=== PATIENT | female | born 1995 | race Caucasian/White ===

== ENCOUNTER 2017-08-19 08:41 | Emergency (ER) | payer MEDICAID, OTHER ==
[~2017-08-19] VITALS: Ht 165.1 cm; Wt 54.7 kg
[~2017-08-19 08:41] MED LIST: ASPI-611 PO; CEPH500C5 PO; MECL12.584 PO; ONDA4TAB12 PO; SILD20TA2 PO
[2017-08-19 08:45] VITALS: BP 111/70
[2017-08-19] MEDS ORDERED: PENI500T2 PO (09:00)
== END 2017-08-19 09:16 | disposition home or self-care (01) ==
LOC: ER 08:43
DX: J02.0 Streptococcal pharyngitis (principal); Z98.890 Other specified postprocedural states; Z88.1 Allergy status to other antibiotic agents; Z88.8 Allergy status to other drugs, medicaments and biological substances; Z79.82 Long term (current) use of aspirin
CPT/HCPCS: 99283

== ENCOUNTER 2017-09-14 23:05 | Emergency (ER) | payer MEDICAID, OTHER ==
[~2017-09-14] VITALS: Ht 180011.9 cm; Wt 54.0 kg
[~2017-09-14 23:05] MED LIST changes: +PENI500T2 PO
[2017-09-14] MEDS ORDERED: NAPR375T5 PO (23:41)
[2017-09-14 23:46] VITALS: BP 119/74
== END 2017-09-14 23:51 | disposition home or self-care (01) ==
LOC: ER 23:05
DX: G56.01 Carpal tunnel syndrome, right upper limb (principal); J06.9 Acute upper respiratory infection, unspecified; Z88.2 Allergy status to sulfonamides; Z88.1 Allergy status to other antibiotic agents
CPT/HCPCS: 29125; 99283

== ENCOUNTER 2020-04-21 09:04 | Inpatient (IN) | payer BC, MEDICAID ==
[~2020-04-21] VITALS: Ht 165.1 cm; Wt 61.8 kg
[~2020-04-21 09:04] MED LIST changes: -CEPH500C5 PO; -MECL12.584 PO; -ONDA4TAB12 PO; -PENI500T2 PO; +PHEN-824 PO
[2020-04-21 09:58] LABS: CLARITY,URINE CLOUDY (Clear); COLOR,URINE STRAW (Yellow); GLUCOSE, URINE NEGATIVE (Neg); KETONES,URINE NEGATIVE (Neg); LEUKOCYTE ESTERASE ,URINE MODERATE (Neg); NITRITES, URINE POSITIVE (Neg); OCCULT BLOOD,URINE LARGE (Neg); PROTEIN,URINE 30 mg/dl (Neg); UROBILINOGEN,URINE 0.2 E.U/dL (0.2-1.0)
[2020-04-21 10:00] LABS: UA COLLECTION TYPE CLN CATCH MIDSTREAM; URINE HCG NEGATIVE (NEG)
[2020-04-21 10:04] LABS: SQUAMOUS EPITHELIAL CELL,UR FEW /LPF (FEW); WBC,URINE TNTC /HPF (0-4)
[2020-04-21 10:06] LABS: BACTERIA,URINE 1+ /HPF (Neg); WBC CLUMPS,URINE MANY /HPF (NEGATIVE)
[2020-04-21] MEDS ORDERED: normal saline 1000ML IV soln IVB STA (10:34)
[2020-04-21 11:01] LABS: BASOPHILS % (AUTO) 0.2 % (0-1); EOSINOPHILS % (AUTO) 0.3 % (0-6); HEMATOCRIT 43.7 % (35.0-45.0); HEMOGLOBIN 14.6 g/dl (12.0-16.0); LYMPHOCYTES # (AUTO) 0.9 X10'3 (1.1-4.8); LYMPHOCYTES % (AUTO) 6.3 % (21-51); MEAN CORPUSCULAR HEMOGLOBIN 29.8 PG (27.0-31.0); MEAN CORPUSCULAR HGB CONC 33.4 g/dL (33.0-36.5); MEAN CORPUSCULAR VOLUME 89.3 FL (78-98); MEAN PLATELET VOLUME 7.7 FL (7.4-10.4); MONOCYTES # (AUTO) 0.9 X10'3 (0-0.9); MONOCYTES % (AUTO) 6.5 % (2-12); NEUTROPHILS # (AUTO) 12.7 X10'3 (1.8-7.7); NEUTROPHILS % (AUTO) 86.7 % (42-75); PLATELET COUNT 341 X10'3 (140-440); RED CELL DISTRIBUTION WIDTH 12.7 % (11.5-14.5); WHITE BLOOD COUNT 14.6 X10'3 (4.5-11.0)
[2020-04-21] MEDS ORDERED: ondansetron/PF 4mg/2ml inj IV ONE (11:05)
--- NOTE | 2020-04-21 11:08 | NUR ---
ISAI GRANDMOTHER CALLED. PT WAS SEEN IN [facility] ON [address] FOR UTI A WEEK AND 1/2 AGO. PRESCRIBED ANTIBOTIC BUT DIDNT KNOW WHAT KIND. PT HAS APPT NEXT MONTH WITH UROLOGY AT [facility]. PLEASE CALL ISAI AT [phone] FOR ANY QUESTIONS OR INFO.
[2020-04-21 11:26] LABS: ALANINE AMINOTRANSFERASE 23 U/L (12-78); ALKALINE PHOSPHATASE 55 IU/L (46-116); ANION GAP 9 (8-16); ASPARTATE AMINO TRANSFERASE 14 U/L (10-37); BILIRUBIN,TOTAL 0.8 MG/DL (0.1-1.0); BLOOD UREA NITROGEN 13 MG/DL (7-18); BUN/CREATININE RATIO 12.4 (6.6-38.0); CALCIUM 9.1 MG/DL (8.5-10.1); CHLORIDE 103 MMOL/L (99-107); CREATININE 1.05 MG/DL (0.40-0.90); GLUCOSE 93 MG/DL (70-104); POTASSIUM 3.7 MMOL/L (3.5-5.1); SODIUM 139 MMOL/L (135-145); TOTAL CARBON DIOXIDE 26.9 MMOL/L (24-32); eGFR 66 ML/MIN
[2020-04-21] MEDS ORDERED: CefTRIAXone 2gm/D5W 50ml 50 ML IV ONE (11:45)
--- NOTE | 2020-04-21 12:17 | NUR ---
ANTIBIOTIC RUNNING AT THIS TIME.WE WILL MONITOR.
--- NOTE | 2020-04-21 14:06 | NUR ---
Pt's family member phoned and requested to speak with the patient's physician. QUINN Mitchell is speaking with them at this time. Pt was asking about being given medication to take at home and Provider explained to the patient the need for admission to the hospital and management of her care.
[2020-04-21] MEDS ORDERED: iohexol 300mg/ml 100ml inj. ONE (14:53)
[2020-04-21] MEDS ORDERED: diphenhydrAMINE 25mg capsule PO PRN (16:25)
[2020-04-21] MEDS ORDERED: magnesium hydroxide 30ml (MOM) UD suspension PO PRN (16:25)
[2020-04-21] MEDS ORDERED: mag hydrox/Alum hydrox/simeth 30ml oral suspension PO PRN (16:25)
[2020-04-21] MEDS ORDERED: potassium Cl 20 mEq SR tablet PO PRN ×2 (16:25)
[2020-04-21] MEDS ORDERED: morphine 2 MG/ML inj. syringe IV PRN ×2 (16:25)
[2020-04-21] MEDS ORDERED: magnesium Cl slow-release 64mg tablet PO PRN (16:25)
[2020-04-21] MEDS ORDERED: HYDROcodone/acetaminophen 5mg/325mg tablet PO PRN (16:25)
[2020-04-21] MEDS ORDERED: potassium CL 10mEq/100ml bag 100 ML IV PRN ×2 (16:25)
[2020-04-21] MEDS ORDERED: magnesium 2GM in 50ml NS 50 ML IV PRN (16:25)
[2020-04-21] MEDS ORDERED: acetaminophen 325mg tablet PO PRN (16:25)
[2020-04-21] MEDS ORDERED: magnesium 4gm in 100ml NS 100 ML IV PRN (16:25)
[2020-04-21] MEDS: normal saline 1000ml 1,000 ML IV SCH (17:02)
[2020-04-21 17:06] LABS: HEMOGLOBIN A1C 5.4 % (4.5-6.2)
[2020-04-21] MEDS: HYDROcodone/acetaminophen 10/325mg tab PO PRN (18:10)
[2020-04-21 19:15] VITALS: BP 113/63
--- NOTE | 2020-04-21 19:15 | NUR ---
PATIENT ADMITTED TO ROOM 350B FROM ER FOR UTI AND OBSTRUCTION. PLACED COMFORTABLE IN BED. VITAL SIGNS TAKEN AND RECORDED.
[2020-04-21] MEDS: K and/or MAG REPLACEMENT MC SCH (20:00)
[2020-04-21] MEDS: ondansetron/PF 4mg/2ml inj IV PRN (21:33)
[2020-04-21] MEDS: heparin, porcine 5000 units/ml vial SQ SCH (21:37)
[2020-04-21] MEDS: sildenafil citrate 20mg tablet PO SCH (22:28)
[2020-04-21] MEDS: aspirin 81mg tablet.DR PO SCH (22:29)
[2020-04-22] VITALS: BP 100/50
[2020-04-22] MEDS: HYDROcodone/acetaminophen 10/325mg tab PO PRN (02:15)
[2020-04-22] MEDS: normal saline 1000ml 1,000 ML IV SCH ×3 (02:16→20:42)
[2020-04-22 05:16] LABS: ALANINE AMINOTRANSFERASE 14 U/L (12-78); ALBUMIN/GLOBULIN RATIO 0.9 (1.1-1.5); ALKALINE PHOSPHATASE 44 IU/L (46-116); ANION GAP 9 (8-16); ASPARTATE AMINO TRANSFERASE 9 U/L (10-37); BILIRUBIN,TOTAL 0.5 MG/DL (0.1-1.0); BLOOD UREA NITROGEN 9 MG/DL (7-18); BUN/CREATININE RATIO 10.6 (6.6-38.0); CALCIUM 8.3 MG/DL (8.5-10.1); CHLORIDE 106 MMOL/L (99-107); CHOL/HDL RATIO 3.1 (0.00-4.99); CHOLESTEROL 121 MG/DL (0-200); CREATININE 0.85 MG/DL (0.40-0.90); GLUCOSE 87 MG/DL (70-104); HDL CHOLESTEROL 39 MG/DL (35-60); LDL CHOLESTEROL 72 MG/DL (50-100); MAGNESIUM 1.8 MG/DL (1.5-2.4); PHOSPHORUS 3.9 MG/DL (2.3-4.5); POTASSIUM 3.7 MMOL/L (3.5-5.1); SODIUM 140 MMOL/L (135-145); TOTAL CARBON DIOXIDE 25.3 MMOL/L (24-32); TOTAL PROTEIN 6.5 G/DL (6.4-8.2); TRIGLYCERIDES 70 MG/DL (20-135); eGFR 84 ML/MIN
[2020-04-22 05:58] LABS: BASOPHILS % (AUTO) 0.4 % (0-1); EOSINOPHILS # (AUTO) 0.1 X10'3 (0-0.9); EOSINOPHILS % (AUTO) 0.8 % (0-6); HEMATOCRIT 37.8 % (35.0-45.0); HEMOGLOBIN 12.7 g/dl (12.0-16.0); LYMPHOCYTES # (AUTO) 1.1 X10'3 (1.1-4.8); LYMPHOCYTES % (AUTO) 12.4 % (21-51); MEAN CORPUSCULAR HEMOGLOBIN 30.6 PG (27.0-31.0); MEAN CORPUSCULAR HGB CONC 33.6 g/dL (33.0-36.5); MEAN PLATELET VOLUME 8.1 FL (7.4-10.4); MONOCYTES # (AUTO) 0.9 X10'3 (0-0.9); MONOCYTES % (AUTO) 10.3 % (2-12); NEUTROPHILS % (AUTO) 76.1 % (42-75); PLATELET COUNT 273 X10'3 (140-440); RED BLOOD COUNT 4.16 X10'6 (4.20-5.60); RED CELL DISTRIBUTION WIDTH 12.6 % (11.5-14.5); WHITE BLOOD COUNT 9.2 X10'3 (4.5-11.0)
--- NOTE | 2020-04-22 06:30 | NUR ---
Problems reprioritized. Patient report given, questions answered & plan of care reviewed with KING NICOLAS.
[2020-04-22] MEDS: K and/or MAG REPLACEMENT MC SCH ×2 (06:51→20:00)
[2020-04-22 07:00] VITALS: BP 97/55
[2020-04-22] MEDS: CefTRIAXone/D5W-Rocephin 1gm 50 ML IV SCH (08:33)
[2020-04-22] MEDS: sildenafil citrate 20mg tablet PO SCH ×3 (08:33→20:34)
[2020-04-22] MEDS: ondansetron/PF 4mg/2ml inj IV PRN ×2 (08:33→16:04)
[2020-04-22] MEDS: heparin, porcine 5000 units/ml vial SQ SCH ×2 (08:33→20:35)
[2020-04-22] MEDS: aspirin 81mg tablet.DR PO SCH (08:33)
[2020-04-22] MEDS: acetaminophen 325mg tablet PO PRN ×2 (11:01→20:45)
[2020-04-22 11:51] VITALS: BP 104/62
[2020-04-22 18:00] VITALS: BP 104/62
--- NOTE | 2020-04-22 18:32 | NUR ---
Problems reprioritized. Patient report given, questions answered & plan of care reviewed with PRUDENCE RN.
--- NOTE | 2020-04-22 18:37 | NUR ---
Patient in room [facility]. I have received report from Kamryn NICOLAS and had the opportunity to ask questions and assume patient care.
[2020-04-22] MEDS: lactobacillus rhamnosus 10,000 MMU CELLS/CAPSULE PO SCH (20:34)
[2020-04-23] VITALS: BP 102/68
[2020-04-23] MEDS: HYDROcodone/acetaminophen 10/325mg tab PO PRN (04:57)
[2020-04-23] MEDS: normal saline 1000ml 1,000 ML IV SCH (04:59)
--- NOTE | 2020-04-23 06:29 | NUR ---
Problems reprioritized. Patient report given, questions answered & plan of care reviewed with KING NICOLAS.
--- NOTE | 2020-04-23 06:32 | NUR ---
Patient in room [facility] 350. I have received report from johnson evans and had the opportunity to ask questions and assume patient care.
[2020-04-23 07:00] VITALS: BP 103/64
[2020-04-23 07:11] LABS: BASOPHILS % (AUTO) 0.6 % (0-1); EOSINOPHILS # (AUTO) 0.1 X10'3 (0-0.9); HEMATOCRIT 35.9 % (35.0-45.0); HEMOGLOBIN 12.2 g/dl (12.0-16.0); LYMPHOCYTES % (AUTO) 15.3 % (21-51); MEAN CORPUSCULAR HEMOGLOBIN 30.6 PG (27.0-31.0); MEAN CORPUSCULAR HGB CONC 34.1 g/dL (33.0-36.5); MEAN CORPUSCULAR VOLUME 89.9 FL (78-98); MEAN PLATELET VOLUME 8.1 FL (7.4-10.4); MONOCYTES # (AUTO) 0.7 X10'3 (0-0.9); MONOCYTES % (AUTO) 10.9 % (2-12); NEUTROPHILS # (AUTO) 4.8 X10'3 (1.8-7.7); NEUTROPHILS % (AUTO) 71.2 % (42-75); PLATELET COUNT 256 X10'3 (140-440); RED BLOOD COUNT 3.99 X10'6 (4.20-5.60); RED CELL DISTRIBUTION WIDTH 12.8 % (11.5-14.5); WHITE BLOOD COUNT 6.8 X10'3 (4.5-11.0)
[2020-04-23 07:53] LABS: ALANINE AMINOTRANSFERASE 13 U/L (12-78); ALBUMIN 2.9 G/DL (3.4-5.0); ALBUMIN/GLOBULIN RATIO 0.9 (1.1-1.5); ALKALINE PHOSPHATASE 38 IU/L (46-116); ANION GAP 12 (8-16); ASPARTATE AMINO TRANSFERASE 10 U/L (10-37); BILIRUBIN,TOTAL 0.3 MG/DL (0.1-1.0); BLOOD UREA NITROGEN 6 MG/DL (7-18); BUN/CREATININE RATIO 7.2 (6.6-38.0); CALCIUM 8.3 MG/DL (8.5-10.1); CHLORIDE 106 MMOL/L (99-107); CREATININE 0.83 MG/DL (0.40-0.90); GLUCOSE 93 MG/DL (70-104); MAGNESIUM 1.7 MG/DL (1.5-2.4); POTASSIUM 3.6 MMOL/L (3.5-5.1); SODIUM 141 MMOL/L (135-145); TOTAL CARBON DIOXIDE 22.9 MMOL/L (24-32); TOTAL PROTEIN 6.2 G/DL (6.4-8.2); eGFR 86 ML/MIN
[2020-04-23] MEDS: K and/or MAG REPLACEMENT MC SCH (08:00)
[2020-04-23] MEDS: aspirin 81mg tablet.DR PO SCH (08:56)
[2020-04-23] MEDS: lactobacillus rhamnosus 10,000 MMU CELLS/CAPSULE PO SCH (08:56)
[2020-04-23] MEDS: CefTRIAXone/D5W-Rocephin 1gm 50 ML IV SCH (08:56)
[2020-04-23] MEDS: sildenafil citrate 20mg tablet PO SCH (08:56)
[2020-04-23] MEDS: heparin, porcine 5000 units/ml vial SQ SCH (08:57)
[2020-04-23] MEDS ORDERED: CEFD300C3 PO (11:08)
[2020-04-23] MEDS ORDERED: LACT1CAP26 PO (11:08)
--- NOTE | 2020-04-23 13:00 | NUR ---
PT DISCHARGED IN STABLE CONDITION. LEFT FACILITY IN PRIVATE VEHICLE WITH FAMILY. IV DC CANULA INTACT. ALL BELONGING IN HAND. FOLLOW UP INSTRUCTIONS GIVEN, ALL QUESTIONS ANSWERED. Addendum: 04/23/20 at 1525 by Najma Dai RN Amended: Links added.
== END 2020-04-23 13:06 | disposition home or self-care (01) | DRG 690 ==
LOC: ER 09:04 → ED HOLD 16:22 → SUR 3N 19:09
PROVIDERS: ADMIT Family Medicine; ATTEND Family Medicine
DX: N12 Tubulo-interstitial nephritis, not specified as acute or chronic (principal); I27.20 Pulmonary hypertension, unspecified; K21.9 Gastro-esophageal reflux disease without esophagitis; E86.0 Dehydration; Z87.440 Personal history of urinary (tract) infections; Z87.74 Personal history of (corrected) congenital malformations of heart and circulatory system; Z95.2 Presence of prosthetic heart valve
CPT/HCPCS: 36415; 74177; 80053; 80061; 81001; 81025; 83036; 83605; 83735; 84100; 84145; 85025; 87040; 87077; 87081; 87088; 87186; 99285; G0378; J0696; J1644; J2405; J7030; Q9967